=== PATIENT | female | born 1995 | race Hispanic/Latino ===

== ENCOUNTER 2020-11-06 21:24 | Observation (INO) | payer MEDICAID, OTHER ==
[~2020-11-06] VITALS: Ht 157.5 cm; Wt 62.1 kg
[2020-11-06 22:24] LABS: APPEARANCE,URINE Cloudy (CLEAR); BILIRUBIN,URINE Negative (NEGATIVE); COLOR,URINE Yellow (YELLOW); GLUCOSE, URINE (UA) Negative (NEGATIVE); KETONES,URINE Trace mg/dL (NEGATIVE); LEUKOCYTE ESTERASE ,URINE Trace (NEGATIVE); NITRATE,URINE Negative (NEGATIVE); OCCULT BLOOD,URINE Negative (NEGATIVE); PH,URINE 6.5 (5.0-8.0); PROTEIN,URINE Negative (NEGATIVE); UROBILINOGEN,URINE 0.2 mg/dL (0.2-1.0)
[2020-11-06 22:34] LABS: AMPHET/METH SCREEN,URINE NEGATIVE (NEGATIVE); BARBITURATE SCREEN, URINE NEGATIVE (NEGATIVE); BENZODIAZEPINES SCREEN,URINE NEGATIVE (NEGATIVE); CANNABINOID SCREEN,URINE POSITIVE (NEGATIVE); COCAINE SCREEN,URINE NEGATIVE (NEGATIVE); OPIATE SCREEN,URINE NEGATIVE (NEGATIVE); PHENCYCLIDINE SCREEN,URINE NEGATIVE (NEGATIVE)
[2020-11-06 22:48] LABS: BACTERIA,URINE Rare /HPF (None Seen); RBC,URINE None Seen /HPF (0-1); SQUAMOUS EPITHELIAL CELL,UR Many /HPF (0-2); WBC,URINE 0-1 /HPF (0-1)
[2020-11-06] MEDS ORDERED: LACTATED RINGERS 1000ML 1,000 ML IV PRN (23:15)
[2020-11-06] MEDS ORDERED: MAGNESIUM 4GM PREMIX 100ML 100 ML IV SCH (23:15)
[2020-11-06] MEDS ORDERED: CALCIUM GLUCONATE 1 GM/10 ML VIAL IV PRN (23:15)
[2020-11-06] MEDS ORDERED: PROMETHAZINE HCL 25 MG/ML 1ML AMPULE IM PRN (23:15)
[2020-11-06] MEDS ORDERED: MEPERIDINE-PF 50 MG/ML SYG IVP PRN (23:15)
[2020-11-06] MEDS ORDERED: MAGNESIUM SULFATE 1,000 ML IV SCH (23:15)
[2020-11-06 23:25] LABS: MEAN CORPUSCULAR HEMOGLOBIN 30.3 pg (27.0-33.0); MEAN CORPUSCULAR HGB CONC 33.5 g/dL (32.0-36.0); MEAN CORPUSCULAR VOLUME 90.4 fL (79-99); RED BLOOD CELL COUNT(AUTO) 3.76 MIL/uL (4.00-5.50); RED CELL DISTRIBUTION WIDTH 13.1 % (11.0-15.5); WHITE BLOOD COUNT (AUTO) 12.4 K/uL (4.8-10.8)
[2020-11-06] MEDS ORDERED: MAGNESIUM 4GM PREMIX 100ML 100 ML IV ONE (23:26)
[2020-11-06 23:43] LABS: ALBUMIN 3.3 g/dL (3.5-5.0); BILIRUBIN,TOTAL 0.3 mg/dL (0.2-1.0); CREATININE 0.7 mg/dL (0.5-1.5); TOTAL PROTEIN, SERUM 6.8 g/dL (6.0-8.3)
[2020-11-06] MEDS ORDERED: MAGNESIUM SULFATE 1,000 ML IV ONE (23:56)
[2020-11-06] MEDS: AMPICILLIN 2GM+NS 100ML 100 ML IV SCH (23:59)
[2020-11-07] MEDS: POTASSIUM CHLORIDE 20MEQ/100ML 100 ML IV PRN ×2 (01:13→03:01)
[2020-11-07] MEDS: LIDOCAINE HCL-MPF 1% 2ML VIAL IJ PRN ×2 (01:13→03:01)
[2020-11-07 05:03] LABS: MAGNESIUM 5.6 mg/dL (1.80-2.40); POTASSIUM 3.5 mmol/L (3.5-5.1)
[2020-11-07] MEDS: AMPICILLIN 2GM+NS 100ML 100 ML IV SCH (06:08)
[2020-11-07 09:24] LABS: RAPID PLASMA REAGIN NONREACTIVE (NONREACTIVE)
[2020-11-08 08:14] LABS: HEPATITIS Bs ANTIGEN SCREEN P Negative (Negative)
== END 2020-11-07 11:15 | disposition home or self-care (01) ==
LOC: EDH 21:24 → INTOOBSV 21:40 → LDH 21:40 → OBSVTOIN 21:40
PROVIDERS: ADMIT Specialist; ATTEND Specialist
DX: O26.892 Other specified pregnancy related conditions, second trimester (principal); R10.2 Pelvic and perineal pain; O99.332 Smoking (tobacco) complicating pregnancy, second trimester; F17.210 Nicotine dependence, cigarettes, uncomplicated; Z3A.25 25 weeks gestation of pregnancy
CPT/HCPCS: 36415 ×2; 59025; 76805; 80053; 80305; 81001; 82150; 83690; 83735; 84132; 85027; 86592; 86701; 86850; 86900; 86901; 87340; 87390; 96365; 96366; 96368; 96372; 96375; 99284; A4314; G0378 ×13; J0290 ×2; J2175; J2550; J3475 ×2; J3480 ×2; J3490

== ENCOUNTER 2020-11-19 06:02 | Inpatient (IN) | payer OTHER ==
[~2020-11-19] VITALS: Ht 154.9 cm; Wt 59.0 kg
[2020-11-19] MEDS ORDERED: SODIUM CHLORIDE 0.9% 1000ML 1,000 ML IV ONE (06:17)
[2020-11-19] MEDS ORDERED: OXYTOCIN-LR 20 UNITS/1000 ML 1,000 ML IV ONE (06:29)
[2020-11-19 06:31] LABS: BASOPHILS % (AUTO) 0.1 % (0.0-5.0); EOSINOPHILS % (AUTO) 0.1 % (0.0-8.0); HEMATOCRIT 34.3 % (36-48); LYMPHOCYTES % (AUTO) 3.3 % (21.0-51.0); MEAN CORPUSCULAR HEMOGLOBIN 30.3 pg (27.0-33.0); MEAN CORPUSCULAR HGB CONC 33.8 g/dL (32.0-36.0); MEAN CORPUSCULAR VOLUME 89.6 fL (79-99); MONOCYTES % (AUTO) 3.7 % (3.0-13.0); NEUTROPHILS % (AUTO) 92.3 % (40.0-77.0); PLATELET COUNT (AUTO) 238 K/uL (130-400); RED BLOOD CELL COUNT(AUTO) 3.83 MIL/uL (4.00-5.50); RED CELL DISTRIBUTION WIDTH 12.9 % (11.0-15.5); WHITE BLOOD COUNT (AUTO) 16.9 K/uL (4.8-10.8)
[2020-11-19 06:46] LABS: ALBUMIN 3.5 g/dL (3.5-5.0); BILIRUBIN,TOTAL 0.5 mg/dL (0.2-1.0); TOTAL PROTEIN, SERUM 7.2 g/dL (6.0-8.3)
[2020-11-19 06:53] LABS: INR 0.97 (0.85-1.15); PROTHROMBIN TIME 10.6 SEC (9.6-11.6)
[2020-11-19 06:55] LABS: PARTIAL THROMBOPLASTIN TIME 27.4 SEC (26.3-35.5)
[2020-11-19] MEDS ORDERED: MEASLES/MUMPS/RUBELLA VACCINE, LIVE 0.5 ML/VIAL SQ PRN (07:15)
[2020-11-19] MEDS ORDERED: BENZOCAINE/LANOLIN/ALOE VERA 60 ML AEROSOL TP PRN (07:15)
[2020-11-19] MEDS ORDERED: ERYTHROMYCIN BASE 0.5% OPHTH OINT 1 GM TUBE ONE (07:15)
[2020-11-19] MEDS ORDERED: WITCH HAZEL 1 PAD TP PRN (07:15)
[2020-11-19] MEDS ORDERED: PHYTONADIONE 1 MG/0.5 ML AMP ONE (07:15)
[2020-11-19] MEDS ORDERED: OXYTOCIN-LR 20 UNITS/1000 ML 1,000 ML IV SCH ×2 (07:15)
[2020-11-19] MEDS ORDERED: DIPH,PERTUSS(ACELL),TET VAC/PF 0.5 ML VIAL IM PRN (07:15)
[2020-11-19] MEDS ORDERED: ACETAMINOPHEN 325 MG TAB PO PRN (07:15)
[2020-11-19] MEDS ORDERED: LACTATED RINGERS 1000ML 1,000 ML IV PRN (07:15)
[2020-11-19] MEDS ORDERED: ACETAMINOPHEN-CODEINE 300/30MG TAB PO PRN (07:15)
[2020-11-19] MEDS ORDERED: LANOLIN 30GM OINTMENT TP PRN (07:15)
[2020-11-19] MEDS ORDERED: AMPICILLIN 250MG VIAL ONE (07:15)
[2020-11-19] MEDS ORDERED: IBUPROFEN 600 MG TABLET ONE (07:21)
[2020-11-19] MEDS: IBUPROFEN 600 MG TABLET PO PRN (07:24)
[2020-11-19] MEDS ORDERED: POTASSIUM CHLORIDE 10% ELIXIR 20 MEQ/15 ML UDCUP PO PRN (07:30)
[2020-11-19] MEDS ORDERED: POTASSIUM CHLORIDE 20MEQ/100ML 100 ML IV PRN (07:30)
[2020-11-19] MEDS ORDERED: LIDOCAINE HCL-MPF 1% 2ML VIAL IV PRN (07:30)
[2020-11-19 07:31] VITALS: BP 125/80
[2020-11-19 08:20] LABS: APPEARANCE,URINE CLEAR (CLEAR); BILIRUBIN,URINE SMALL (NEGATIVE); COLOR,URINE YELLOW (YELLOW); GLUCOSE, URINE (UA) NEGATIVE (NEGATIVE); KETONES,URINE >=80 mg/dL (NEGATIVE); LEUKOCYTE ESTERASE ,URINE NEGATIVE (NEGATIVE); NITRATE,URINE NEGATIVE (NEGATIVE); OCCULT BLOOD,URINE NEGATIVE (NEGATIVE); PH,URINE 5.5 (5.0-8.0); PROTEIN,URINE 100 mg/dL (NEGATIVE); UROBILINOGEN,URINE 0.2 mg/dL (0.2-1.0)
[2020-11-19 08:29] LABS: AMPHET/METH SCREEN,URINE NEGATIVE (NEGATIVE); BARBITURATE SCREEN, URINE NEGATIVE (NEGATIVE); BENZODIAZEPINES SCREEN,URINE NEGATIVE (NEGATIVE); CANNABINOID SCREEN,URINE POSITIVE (NEGATIVE); COCAINE SCREEN,URINE POSITIVE (NEGATIVE); OPIATE SCREEN,URINE NEGATIVE (NEGATIVE); PHENCYCLIDINE SCREEN,URINE NEGATIVE (NEGATIVE)
[2020-11-19 08:55] VITALS: BP 115/65
[2020-11-19 09:05] LABS: BACTERIA,URINE Few /HPF (None Seen); MUCUS,URINE Many LPF (None Seen); RBC,URINE 0-1 /HPF (0-1); SQUAMOUS EPITHELIAL CELL,UR Moderate /HPF (0-2)
[2020-11-19 09:28] LABS: RAPID PLASMA REAGIN NONREACTIVE (NONREACTIVE)
[2020-11-19] MEDS: DOCUSATE SODIUM 100 MG CAP PO SCH ×2 (10:23→21:05)
[2020-11-19] MEDS: POTASSIUM CHLORIDE 20 MEQ ERTAB PO PRN ×2 (10:24→13:10)
[2020-11-19 11:15] VITALS: BP 105/58
[2020-11-19 15:36] VITALS: BP 95/59
[2020-11-19 19:24] VITALS: BP 104/65
[2020-11-19 23:28] VITALS: BP 122/78
[2020-11-20 03:20] VITALS: BP 96/53
[2020-11-20 07:13] VITALS: BP 107/62
[2020-11-20] MEDS: IBUPROFEN 600 MG TABLET PO PRN (07:27)
[2020-11-20 08:14] LABS: HEPATITIS Bs ANTIGEN SCREEN P Negative (Negative)
[2020-11-20] MEDS: DOCUSATE SODIUM 100 MG CAP PO SCH (08:40)
[2020-11-20 10:54] VITALS: BP 94/40
== END 2020-11-20 12:40 | disposition home or self-care (01) | DRG 806 ==
LOC: EDH 06:02 → LDH 06:03 → WSH 08:51
PROVIDERS: ADMIT Obstetrics & Gynecology; ATTEND Obstetrics & Gynecology
PROC: 10E0XZZ Delivery of Products of Conception, External Approach (ICD-10-PCS; principal; 2020-11-19)
PROC: 3E0234Z Introduction of Serum, Toxoid and Vaccine into Muscle, Percutaneous Approach (ICD-10-PCS; 2020-11-19)
PROC: 3E0134Z Introduction of Serum, Toxoid and Vaccine into Subcutaneous Tissue, Percutaneous Approach (ICD-10-PCS; 2020-11-19)
DX: O60.12X0 Preterm labor second trimester with preterm delivery second trimester, not applicable or unspecified (principal); O99.324 Drug use complicating childbirth; Z37.0 Single live birth; Z3A.23 23 weeks gestation of pregnancy; Z23 Encounter for immunization; Z20.822 Contact with and (suspected) exposure to COVID-19; F14.90 Cocaine use, unspecified, uncomplicated; F12.90 Cannabis use, unspecified, uncomplicated
CPT/HCPCS: 36415; 80053; 80305; 81001; 84132; 84484; 85025; 85610; 85730; 86592; 86701; 86850; 86900; 86901; 87088; 87340; 87390; 87426; 90707; 90715; A4351; G0378; J0290; J2590; J3430; J3480; J7030; U0003

== ENCOUNTER 2022-02-22 13:53 | Emergency (ER) | payer MEDICAID ==
[~2022-02-22] VITALS: Ht 154.9 cm; Wt 54.4 kg
[2022-02-22 13:55] VITALS: BP 114/63
[2022-02-22 14:15] LABS: APPEARANCE,URINE SL CLOUDY (CLEAR); BILIRUBIN,URINE NEGATIVE (NEGATIVE); COLOR,URINE YELLOW (YELLOW); GLUCOSE, URINE (UA) NEGATIVE (NEGATIVE); KETONES,URINE NEGATIVE (NEGATIVE); LEUKOCYTE ESTERASE ,URINE LARGE (NEGATIVE); NITRATE,URINE NEGATIVE (NEGATIVE); OCCULT BLOOD,URINE NEGATIVE (NEGATIVE); PROTEIN,URINE NEGATIVE (NEGATIVE); UROBILINOGEN,URINE 0.2 mg/dL (0.2-1.0)
[2022-02-22 14:20] LABS: HCG,QUALITATIVE URINE POSITIVE (NEGATIVE)
[2022-02-22 14:25] LABS: BASOPHILS % (AUTO) 0.2 % (0.0-5.0); EOSINOPHILS % (AUTO) 0.6 % (0.0-8.0); HEMATOCRIT 35.1 % (36-48); LYMPHOCYTES % (AUTO) 21.4 % (21.0-51.0); MEAN CORPUSCULAR HEMOGLOBIN 29.4 pg (27.0-33.0); MEAN CORPUSCULAR HGB CONC 33.3 g/dL (32.0-36.0); MEAN CORPUSCULAR VOLUME 88.2 fL (79-99); MONOCYTES % (AUTO) 7.8 % (3.0-13.0); NEUTROPHILS % (AUTO) 69.8 % (40.0-77.0); PLATELET COUNT (AUTO) 235 K/uL (130-400); RED BLOOD CELL COUNT(AUTO) 3.98 MIL/uL (4.00-5.50); RED CELL DISTRIBUTION WIDTH 12.5 % (11.0-15.5); WHITE BLOOD COUNT (AUTO) 5.4 K/uL (4.8-10.8)
[2022-02-22 14:34] LABS: CREATININE 0.5 mg/dL (0.5-1.5); POTASSIUM 3.8 mmol/L (3.5-5.1)
[2022-02-22 14:38] LABS: ALBUMIN 3.4 g/dL (3.5-5.0); TOTAL PROTEIN, SERUM 6.6 g/dL (6.0-8.3)
[2022-02-22 14:43] LABS: BACTERIA,URINE Moderate /HPF (None Seen); RBC,URINE 0-1 /HPF (0-1)
[2022-02-22 14:44] LABS: MUCUS,URINE Few LPF (None Seen); SQUAMOUS EPITHELIAL CELL,UR Moderate /HPF (0-2)
[2022-02-22] MEDS ORDERED: CEPH500B PO (14:52)
[2022-02-22] MEDS ORDERED: PREN-61 PO (14:52)
[2022-02-22] MEDS ORDERED: CEFTRIAXONE 1G VIAL IVP ONE (15:00)
== END 2022-02-22 15:27 | disposition home or self-care (01) ==
LOC: EDH 13:53
DX: O23.40 Unspecified infection of urinary tract in pregnancy, unspecified trimester (principal); N39.0 Urinary tract infection, site not specified; Z3A.00 Weeks of gestation of pregnancy not specified
CPT/HCPCS: 99283; 96374; 80053; 83690; 85025; 87088; 81001; 81025; 36415; J0696